=== PATIENT | female | born 1960 | race Caucasian/White ===

== ENCOUNTER → 2016-11-04 | Outpatient (CLI) | payer OTHER, MEDICARE ==
[~2016-11-04] MED LIST: CELEBREX100 MG PO; CIPRO PO; CIPRODEX OTIC7.5 ML OT; CORTISPORI3.5 GM OPT AU; DICLOFENAC SODI50 MG; ERYTHROCIN STE250 M2 PO; FIORICET1 TAB PO; FLEXERIL PO; FLEXERIL10 MG PO; IMITREX PO; KETOPROFEN PO; LORTAB 5/500 TA1 TA1 PO; LORTAB 7.5-5001 TAB PO; LYRICA75 MG PO; MEDI-MECLIZINE25 M1 PO; MEDROL DOSEPAK4 MG PO; MEDROL PO; MEDROL4 MG/DOSE- PO; METFORMIN PO; METOPROLOL SUCC50 MG PO; MOTRIN600 M2 DOB; MULTI VITAMIN1 EACH; MUSCLE RELAXER PO; NAPROXEN500 M1 PO; PEPCID AC20 MG PO; PRILOSEC PO; PRILOSEC40 MG PO; RELPAX40 MG PO; SKELAXIN PO; TOPAMAX PO; TOPAMAX50 MG PO; TOPROL XL PO; TRAMADOL HCL100 M1 PO; TRAMADOL HCL50 M1 PO; TRILEPTAL PO; VICODIN PO; ZANAFLEX2 M1 PO; ZOFRAN ODT4 MG PO
--- NOTE | ~2016-11-04 | CT71 ---
[facility] A Service [facility] RADIOLOGY TEXT RESULTS PATIENT: BERTHA FUENTES LOCATION: [facility] : 62 UNIT #: [id number] AGE: [address]: Fred Castaneda MD SEX: F ORDER DR: [id number] [facility] [address] [place], [place] [address] [id number] O MR#: [id number] Acc #: [id number] NAME: BERTHA FUENTES : 1960 SEX: F STUDY DATE/TIME: 11/04/2016 15:23 UNIT: [facility] ROOM: STUDY DESCRIPTION: CT Head Wo Contrast Attending Physician: Fred Castaneda M.D. Ordering Physician: Fred Castaneda M.D. Primary Care Physician: Fred Castaneda M.D. MEDICAL IMAGING REPORT This report is preliminary unless electronic signature is present EXAM CT brain without contrast media. HISTORY Skull lesion, knot on right-side of head behind the ear. Pain, headache for 3 months. TECHNIQUE Transaxial imaging of the brain is performed without contrast media. It is directly compared to [address]. This CT exam was performed with one or more of the following radiation dose reduction techniques: automatic exposure control, adjustment of mA and/or kV according to patient size, and iterative reconstruction. FINDINGS Intracranially, the ventricles and CSF containing spaces are normal. No intra or extraaxial mass lesions, fluid collections, or mass effect are seen. No focal areas of low attenuation or evidence of acute intracranial hemorrhage. Bone windows are reviewed. There is some bony thickening of the right temporal bone immediately posterior to the pinna f the right ear. This corresponds to the patient's palpable abnormality. It is present on the patient's previous studies of 2008 and has not changed. CONCLUSIONS Focal bony thickening of the right temporal bone posterior to the pinna of the right ear. The appearance is stable dating back to 2008. It is felt to be absolutely benign and likely developmental. CT of the brain is otherwise normal. Dictated by... [facility] A Service [facility] RADIOLOGY TEXT RESULTS PATIENT: BERTHA FUENTES LOCATION: [facility] : 62 UNIT #: [id number] AGE: [address]: Fred Castaneda MD SEX: F ORDER DR: Gm Mazariegos M.D. THIS IS AN ELECTRONICALLY VERIFIED REPORT Gm Mazariegos M.D. at 11/08/2016 2:45 PM LISA/elbert TD: 11/04/2016 17:04 JOB #: [id number] MEDICAL IMAGING REPORT Page 1 of 1 COPY
== END | disposition home or self-care (01) ==
LOC: CCAT 14:31
DX: M89.9 Disorder of bone, unspecified (principal)
CPT/HCPCS: 70450

== ENCOUNTER → 2016-12-27 | Day surgery (SDC) | payer OTHER, MEDICARE ==
--- NOTE | ~2016-12-27 | OR ---
Unit #: [id number] #: [id number] Patient: BERTHA FUENTES [id number] [address] [place], [place] [address] [id number] O MR#: [id number] NAME: BERTHA FUENTES ROOM: Date of Procedure: 12/27/2016 Admission Date: 12/27/2016 Surgeon: Levar Horne M.D. : 1960 Attending Physician: Levar Horne M.D. Primary Care Physician: Fred Castaneda M.D. OPERATIVE REPORT PREOPERATIVE DIAGNOSES 1. Dysphagia. 2. Screening colonoscopy. POSTOPERATIVE DIAGNOSES 1. Dysphagia. 2. Screening colonoscopy. PROCEDURES PERFORMED 1. Esophagogastroduodenoscopy. 2. Biopsy of antrum for Helicobacter pylori testing. 3. Colonoscopy to cecum. ANESTHESIA Monitored anesthesia care. FINDINGS The patient was found to have on upper endoscopy mild gastritis, but no abnormality of the esophagus or GE junction. On colonoscopy, the patient had a few scattered sigmoid diverticula and mild internal hemorrhoids. SPECIMENS Sent to pathology. COMPLICATIONS None apparent. CONDITION The patient tolerated the procedure well. INDICATIONS FOR PROCEDURE The patient is a 56-year-old white female, who presents at this time after having an episode of recent dysphagia and the feeling of severe esophageal spasm. She presents at this time for upper endoscopy. In addition, it has been 5 years since her last colonoscopy. Her mother had colon cancer and she presents at this time for screening colonoscopy. DESCRIPTION OF PROCEDURE After obtaining informed consent, the patient was brought to the endoscopy suite. After adequate monitored anesthesia care, had the endoscope placed through the mouth into the upper esophagus under direct vision. It was advanced to the second portion of the duodenum without difficulty with the Unit #: [id number] #: [id number] Patient: BERTHA FUENTES lumen always in view. The duodenum was normal as was the duodenal bulb. The pylorus opened normally. There was some mild distal gastritis present and a biopsy was obtained for Helicobacter pylori testing. On retroflexion back to the GE junction, there was no abnormality seen in the proximal third, middle third, or incisura. On pulling back above the GE junction, there was no stenosis, stricture, or neoplasm seen. There was no significant esophagitis. The remaining portion of the esophagus was within normal limits without any evidence of any narrowing or spasm. Laryngeal structures were grossly normal as viewed from above. At this point in time, the colonoscope was placed through the anus and slowly advanced to the level of the cecum without difficulty with the lumen always in view. The cecum was normal as was the ileocecal valve. The ascending colon was normal as was the hepatic flexure, transverse colon, splenic flexure, and descending colon. In the sigmoid colon, there were some scattered diverticula seen. There were not very numerous in any one area. The rectosigmoid and rectum were all within normal limits. On retroflexing in the rectum to the anorectal junction, there was no abnormality seen other than mild internal hemorrhoids. The scope was removed without difficulty. On digital examination, there was good sphincter tone, no masses palpable. The patient went from the endoscopy suite to the recovery area in stable condition. Dictated by... Catia Maria/rolo TD: 12/28/2016 02:58 JOB #: [id number] CC: . [facility] [place] [facility] OPERATIVE REPORT Page 1 of 1 X Levar Horne MD X PROCEDURE OPERATIVE NOTE
== END | disposition home or self-care (01) ==
LOC: COPS 07:26
DX: Z12.11 Encounter for screening for malignant neoplasm of colon (principal); K29.50 Unspecified chronic gastritis without bleeding; K57.30 Diverticulosis of large intestine without perforation or abscess without bleeding; R13.10 Dysphagia, unspecified; K64.8 Other hemorrhoids; K21.9 Gastro-esophageal reflux disease without esophagitis; M19.90 Unspecified osteoarthritis, unspecified site; F32.9 Major depressive disorder, single episode, unspecified; G43.909 Migraine, unspecified, not intractable, without status migrainosus; I10 Essential (primary) hypertension; F41.9 Anxiety disorder, unspecified; E66.01 Morbid (severe) obesity due to excess calories; Z68.41 Body mass index [BMI] 40.0-44.9, adult; Z87.442 Personal history of urinary calculi; Z83.79 Family history of other diseases of the digestive system; Z80.0 Family history of malignant neoplasm of digestive organs; Z88.0 Allergy status to penicillin; Z88.6 Allergy status to analgesic agent; Z79.1 Long term (current) use of non-steroidal anti-inflammatories (NSAID); Z79.891 Long term (current) use of opiate analgesic; Z79.899 Other long term (current) drug therapy; Z90.710 Acquired absence of both cervix and uterus; Z90.49 Acquired absence of other specified parts of digestive tract
CPT/HCPCS: 87077; J2250